=== PATIENT | male | born 1960 | race African-American/Black ===

== ENCOUNTER 2018-09-15 11:53 | Inpatient (IN) | payer BC ==
[2018-09-15 13:21] VITALS: BMI 31.4
--- NOTE | 2018-09-15 13:35 | HP ---
<Tameka Adamson - Last Filed: 09/15/18 13:35> CIWA Score - Admission Criteria OASAS Guidelines: Admission for Medically Managed Detox: Requires at least one of the followin. CIWA greater than 12 2. Seizures within the past 24 hours 3. Delirium tremens within the past 24 hours 4. Hallucinations within the past 24 hours 5. Acute intervention needed for co occurring medical disorder 6. Acute intervention needed for co occurring psychiatric disorder 7. Severe withdrawal that cannot be handled at a lower level of care (continued vomiting, continued diarrhea, abnormal vital signs) requiring intravenous medication and/or fluids 8. Admission ROS [facility] Chief Complaint: " alcohol detox" Allergies/Adverse Reactions: Allergies Allergy/AdvReac Type Severity Reaction Status Date / Time No Known Allergies Allergy Verified 09/15/18 13:10 History of Present Illness: 57 yo male with hx of alcohol dependence Utox positive for ROBIN , opiates, bzo, BAR, patient denies use of other sustances , request alcohol detox today Reports first time to detox Denies hx of seizures or blackotus PMHX: - Ebola screening Have you traveled outside of the country in the last 21 days: No Have you had contact with anyone from an Ebola affected area: No Have you been sick,other than usual withdrawal symptoms: No Do you have a fever: No Patient History - Patient Medical History Hx Asthma: No Hx Chronic Obstructive Pulmonary Disease (COPD): No Hx Cardiac Disorders: No Hx Hypertension: No Hx Seizures: No Hx Diabetes: No Hx Gastrointestinal Disorders: No Hx Genitourinary Disorders: No Hx Sexually Transmitted Disorders: No Hx Renal Disease (ESRD): No Hx Depression: No Hx Suicide Attempt: No Hx Schizophrenia: No - Patient Surgical History Past Surgical History: No Hx Neurologic Surgery: No Hx Cataract Extraction: No Hx Cardiac Surgery: No Hx Lung Surgery: No Hx Breast Surgery: No Hx Breast Biopsy: No Hx Abdominal Surgery: No Hx Appendectomy: No Hx Cholecystectomy: No Hx Genitourinary Surgery: No Hx Section: No Hx Orthopedic Surgery: No Anesthesia Reaction: No - PPD History Previous Implant?: Yes Documented Results: Negative w/o proof Implanted On Prior R Admission?: No - Smoking Cessation Smoking history: Current every day smoker Have you smoked in the past 12 months: Yes Aproximately how many cigarettes per day: 10 Hx Chewing Tobacco Use: No Initiated information on smoking cessation: Yes - Substances Abused Heroin Route: Inhalation Frequency: 1-3 times last 30 days Amount used: 1/4 bag Age of first use: 57 Date of Last Use: 09/13/18 Alcohol-vodka Route: Oral Frequency: Daily Amount used: 3-4 pts. Age of first use: 28 Date of Last Use: 09/14/18 Admission Physical Exam S - Vital Signs Vital Signs: Vital Signs - 24 hr 09/15/18 13:12 Temperature 98.5 F Pulse Rate 62 Respiratory 20 Rate Blood Pressure 133/75 [facility] Breath Alcohol Content Breath Alcohol Content: 0 Urine Drug Screen - Results Drug Screen Negative: No Urine Drug Screen Results: ROBIN-Cocaine, OPI-Opiates, BAR-Barbiturates, BZO- Benzodiazepines <Tushar Olguin - Last Filed: 09/16/18 08:33> CIWA Score Nausea/Vomitin Muscle Tremors: 2 Anxiety: 2 Agitation: 2 Paroxysmal Sweats: 1-Minimal Palms Moist Orientation: 0-Oriented Tacttile Disturbances: 1-Very Mild Itch/Numbness Auditory Disturbances: 1-Very Mild Visual Disturbances: 0-None Headache: 2-Mild CIWA-Ar Total Score: 13 - Admission Criteria OASAS Guidelines: Admission for Medically Managed Detox: Requires at least one of the followin. CIWA greater than 12 2. Seizures within the past 24 hours 3. Delirium tremens within the past 24 hours 4. Hallucinations within the past 24 hours 5. Acute intervention needed for co occurring medical disorder 6. Acute intervention needed for co occurring psychiatric disorder 7. Severe withdrawal that cannot be handled at a lower level of care (continued vomiting, continued diarrhea, abnormal vital signs) requiring intravenous medication and/or fluids 8. Patient presents the following: CIWA greater than 12 Admission Criteria Met: Admission criteria met Admission ROS [facility] - HPI Chief Complaint: i need help to stop drinking alcohol History of Present Illness: this 57 years old male with alcohol dependence seeking detox,withdrawal symptom, never been in detox before last seen in er in [facility] last night ,clear too come in for detox pain in the left hip also heroin and cocaine longest period 6 months plan for rehab after detox Exam Limitations: No Limitations - Ebola screening Have you traveled outside of the country in the last 21 days: No - Review of Systems Constitutional: Loss of Appetite, Malaise, Night Sweats, Changes in sleep, Weakness EENT: reports: Nose Congestion Respiratory: reports: No Symptoms reported Cardiac: reports: No Symptoms Reported GI: reports: Nausea, Poor Appetite, Abdominal cramping : reports: No Symptoms Reported Musculoskeletal: reports: Back Pain, Muscle Pain Integumentary: reports: Dryness Neuro: reports: Headache, Tremors Endocrine: reports: No Symptoms Reported Hematology: reports: No Symptoms Reported Psychiatric: reports: No Sypmtoms Reported, Judgement Intact, Mood/Affect Appropiate, Orientated x3, other Other Systems: Reviewed and Negative Patient History - Patient Medical History Hx Anemia: No Hx Cancer: No Hx Cardiac Disorders: No Hx Congestive Heart Failure: No Hx Hypertension: No Hx Hypercholesterolemia: No Hx Pacemaker: No HX Cerebrovascular Accident: No Hx Seizures: No Hx Dementia: No Hx Diabetes: No Hx Gastrointestinal Disorders: No Hx Liver Disease: No Hx Genitourinary Disorders: No Hx Sexually Transmitted Disorders: No Hx Renal Disease (ESRD): No Hx Thyroid Disease: No Hx Human Immunodeficiency Virus (HIV): No (last 2017) Hx Hepatitis C: No Hx Depression: No Hx Suicide Attempt: No Hx Bipolar Disorder: No Hx Schizophrenia: No - Patient Surgical History Past Surgical History: Yes Other Surgical History: no sucidal,no homicidal - PPD History Previous Implant?: Yes Documented Results: Negative w/o proof Implanted On Prior [facility] Admission?: No PPD to be Administered?: Yes - Smoking Cessation Smoking history: Current every day smoker Have you smoked in the past 12 months: Yes Hx Chewing Tobacco Use: No Initiated information on smoking cessation: Yes 'Breaking Loose' booklet given: 09/15/18 - Substance & Tx. History Hx Alcohol Use: Yes Hx Substance Use: Yes Substance Use Type: Alcohol, Cocaine, Heroin Hx Substance Use Treatment: No - Substances Abused cocaine Route: Inhalation Frequency: 1-3 times last 30 days Amount used: 20$ Age of first use: 21 Date of Last Use: 09/13/18 Family Disease History - Family Disease History Family History: Denies Admission Physical Exam [facility] - Vital Signs Vital Signs: Vital Signs - 24 hr 09/15/18 13:12 Temperature 98.5 F Pulse Rate 62 Respiratory 20 Rate Blood Pressure 133/75 - Physical General Appearance: Yes: Moderate Distress, Tremorous, Irritable, Sweating, Anxious HEENTM: Yes: Normal ENT Inspection, ALFREDO, Pharynx Normal Respiratory: Yes: Lungs Clear, Normal Breath Sounds, No Respiratory Distress Neck: Yes: Within Normal Limits, Supple, Trachea in good position Breast: Yes: Within Normal Limits Cardiology: Yes: Within Normal Limits, Regular Rhythm, Regular Rate, S1, S2 Abdominal: Yes: Within Normal Limits, Normal Bowel Sounds, Non Tender, Soft Genitourinary: Yes: Within Normal Limits Back: Yes: Muscle Spasm Musculoskeletal: Yes: full range of Motion, Back pain, Muscle Pain Extremities: Yes: Tremors Neurological: 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: 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
[2018-09-15] MEDS ORDERED: MAGNESIUM HYDROX 2400MG/30ML ORAL SUSPENSION 30 ML CUP PO PRN (16:12)
[2018-09-15] MEDS ORDERED: MAG HYDROX/AL HYDROX/SIMETH 30 ML UNIT-DOSE CUP PO PRN (16:12)
[2018-09-15] MEDS ORDERED: MENTHOL/PHENOL 1 EACH UD MM PRN (16:12)
[2018-09-15] MEDS ORDERED: chlordiazePOXIDE HCL 25 MG CAPSULE PO PRN (16:12)
[2018-09-15] MEDS ORDERED: NICOTINE POLACRILEX 2 MG GUM BC PRN (16:12)
[2018-09-15] MEDS ORDERED: P-EPHED 60MG/TRIPROLIDI 2.5MG TABLET PO PRN (16:12)
[2018-09-15] MEDS ORDERED: LOPERAMIDE HCL 2 MG CAPSULE PO PRN (16:12)
[2018-09-15] MEDS ORDERED: ACETAMINOPHEN 325 MG TABLET (FP) PO PRN (16:12)
[2018-09-15] MEDS ORDERED: hydrOXYzine PAMOATE 50 MG CAPSULE (FP) PO PRN (16:12)
[2018-09-15] MEDS ORDERED: IBUPROFEN 400 MG TABLET (FP) PO PRN (16:12)
[2018-09-15] MEDS ORDERED: MAGNESIUM CITRATE 300 ML BOTTLE PO PRN (16:12)
[2018-09-15] MEDS ORDERED: guaiFENesin/D-METHORPHAN HB 10 ML UNIT-DOSE CUPS PO PRN (16:12)
[2018-09-15] MEDS: amLODIPine BESYLATE 10 MG TABLET (FP) PO SCH (17:35)
[2018-09-15] MEDS: NICOTINE 21 MG/24 HOURS TOPICAL PATCH TD SCH (17:39)
[2018-09-15] MEDS ORDERED: MELATONIN 5 MG TABLETS PO PRN (22:00)
[2018-09-15] MEDS: chlordiazePOXIDE HCL 25 MG CAPSULE PO SCH (22:37)
[2018-09-15] MEDS: THIAMINE HCL 100 MG TABLET (FP) PO SCH (22:37)
[2018-09-16] MEDS: chlordiazePOXIDE HCL 25 MG CAPSULE PO SCH ×4 (05:46→22:11)
[2018-09-16] MEDS: amLODIPine BESYLATE 10 MG TABLET (FP) PO SCH (10:20)
[2018-09-16] MEDS: NICOTINE 21 MG/24 HOURS TOPICAL PATCH TD SCH (10:20)
[2018-09-16] MEDS: PRENATAL VITAMINS W/ FOLIC ACID TABLET (FP) PO SCH (10:20)
[2018-09-16 10:57] LABS: HEMATOCRIT 36.5 % (35.4-49); MCH 33.4 pg (25.7-33.7); MCHC 35.7 g/dl (32.0-35.9); MEAN CELL VOLUME 93.4 fl (80-96); MEAN PLT VOLUME 7.4 fl (7.5-11.1); PLATELET COUNT 306 K/MM3 (134-434); RBC 3.91 M/mm3 (4.00-5.60); RDW 15.2 % (11.9-15.9); WHITE BLOOD COUNT 7.5 K/mm3 (4.0-10.0)
[2018-09-16 11:18] LABS: SICKLE CELL SCREEN NEGATIVE (NEGATIVE)
[2018-09-16 11:19] LABS: ALBUMIN 3.2 g/dl (3.4-5.0); ALK PHOS 74 U/L (45-117); ANION GAP 9 MMOL/L (8-16); BILIRUBIN,TOTAL 0.6 mg/dL (0.2-1); BLOOD UREA NITROGEN 11 mg/dL (7-18); CALCIUM 8.5 mg/dL (8.5-10.1); CHLORIDE 108 mmol/L (98-107); CO2 26 mmol/L (21-32); GLUCOSE,RANDOM 89 mg/dL (74-106); POTASSIUM 3.9 mmol/L (3.5-5.1); SGOT/AST 32 U/L (15-37); SGPT/ALT 29 U/L (13-61); SODIUM 143 mmol/L (136-145)
--- NOTE | 2018-09-16 14:01 | PN ---
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 patient does exhibiting tremor sweating restlessness Objective: 09/16/18 14:01 Vital Signs Temperature 97.5 F L 09/16/18 09:06 Pulse Rate 71 09/16/18 09:06 Respiratory Rate 18 09/16/18 09:06 Blood Pressure 128/71 09/16/18 09:06 O2 Sat by Pulse Oximetry (%) Laboratory Last Values WBC 7.5 K/mm3 (4.0-10.0) 09/16/18 08:00 RBC 3.91 M/mm3 (4.00-5.60) L 09/16/18 08:00 Hgb 13.0 GM/dL (11.7-16.9) 09/16/18 08:00 Hct 36.5 % (35.4-49) 09/16/18 08:00 MCV 93.4 fl (80-96) 09/16/18 08:00 MCH 33.4 pg (25.7-33.7) 09/16/18 08:00 MCHC 35.7 g/dl (32.0-35.9) 09/16/18 08:00 RDW 15.2 % (11.9-15.9) 09/16/18 08:00 Plt Count 306 K/MM3 (134-434) 09/16/18 08:00 MPV 7.4 fl (7.5-11.1) L 09/16/18 08:00 Sickle Cell Screen Negative (NEGATIVE) 09/16/18 08:00 Sodium 143 mmol/L (136-145) 09/16/18 08:00 Potassium 3.9 mmol/L (3.5-5.1) 09/16/18 08:00 Chloride 108 mmol/L (98-107) H 09/16/18 08:00 Carbon Dioxide 26 mmol/L (21-32) 09/16/18 08:00 Anion Gap 9 MMOL/L (8-16) 09/16/18 08:00 BUN 11 mg/dL (7-18) 09/16/18 08:00 Creatinine 1.0 mg/dL (0.55-1.3) 09/16/18 08:00 Creat Clearance w eGFR > 60 (>60) 09/16/18 08:00 Random Glucose 89 mg/dL (74-106) 09/16/18 08:00 Calcium 8.5 mg/dL (8.5-10.1) 09/16/18 08:00 Total Bilirubin 0.6 mg/dL (0.2-1) 09/16/18 08:00 AST 32 U/L (15-37) 09/16/18 08:00 ALT 29 U/L (13-61) 09/16/18 08:00 Alkaline Phosphatase 74 U/L (45-117) 09/16/18 08:00 Total Protein 6.0 g/dl (6.4-8.2) L 09/16/18 08:00 Albumin 3.2 g/dl (3.4-5.0) L 09/16/18 08:00 RPR Titer Nonreactive (NONREACTIVE) 09/16/18 08:00 HIV 1&2 Antibody Screen Negative 09/16/18 08:00 HIV P24 Antigen Negative 09/16/18 08:00 lab noted Assessment: 09/16/18 14:01 withdrawal sx Plan: continue detox
[2018-09-16] MEDS: THIAMINE HCL 100 MG TABLET (FP) PO SCH (22:11)
[2018-09-17] MEDS: chlordiazePOXIDE HCL 25 MG CAPSULE PO SCH ×3 (06:05→18:25)
[2018-09-17] MEDS: NICOTINE 21 MG/24 HOURS TOPICAL PATCH TD SCH (10:55)
[2018-09-17] MEDS: PRENATAL VITAMINS W/ FOLIC ACID TABLET (FP) PO SCH (12:02)
[2018-09-17] MEDS: amLODIPine BESYLATE 10 MG TABLET (FP) PO SCH (12:02)
--- NOTE | 2018-09-17 14:08 | PN ---
[facility] CIWA - CIWA Score Nausea/Vomitin-Mild Nausea/No Vomiting Muscle Tremors: 3 Anxiety: 1-Mildly Anxious Agitation: 2 Paroxysmal Sweats: 1-Minimal Palms Moist Orientation: 1-Uncertain about Date Tacttile Disturbances: 0-None Auditory Disturbances: 0-None Visual Disturbances: 0-None Headache: 1-Very Mild CIWA-Ar Total Score: 10 S Progress Note (SOAP) Subjective: tremor irritable hesitate to carry conversation with the information writer sweating agitative in time Objective: 09/17/18 14:09 Vital Signs Temperature 97.1 F L 09/17/18 13:37 Pulse Rate 66 09/17/18 13:37 Respiratory Rate 18 09/17/18 13:37 Blood Pressure 119/64 09/17/18 13:37 O2 Sat by Pulse Oximetry (%) Laboratory Last Values WBC 7.5 K/mm3 (4.0-10.0) 09/16/18 08:00 RBC 3.91 M/mm3 (4.00-5.60) L 09/16/18 08:00 Hgb 13.0 GM/dL (11.7-16.9) 09/16/18 08:00 Hct 36.5 % (35.4-49) 09/16/18 08:00 MCV 93.4 fl (80-96) 09/16/18 08:00 MCH 33.4 pg (25.7-33.7) 09/16/18 08:00 MCHC 35.7 g/dl (32.0-35.9) 09/16/18 08:00 RDW 15.2 % (11.9-15.9) 09/16/18 08:00 Plt Count 306 K/MM3 (134-434) 09/16/18 08:00 MPV 7.4 fl (7.5-11.1) L 09/16/18 08:00 Sickle Cell Screen Negative (NEGATIVE) 09/16/18 08:00 Sodium 143 mmol/L (136-145) 09/16/18 08:00 Potassium 3.9 mmol/L (3.5-5.1) 09/16/18 08:00 Chloride 108 mmol/L (98-107) H 09/16/18 08:00 Carbon Dioxide 26 mmol/L (21-32) 09/16/18 08:00 Anion Gap 9 MMOL/L (8-16) 09/16/18 08:00 BUN 11 mg/dL (7-18) 09/16/18 08:00 Creatinine 1.0 mg/dL (0.55-1.3) 09/16/18 08:00 Creat Clearance w eGFR > 60 (>60) 09/16/18 08:00 Random Glucose 89 mg/dL (74-106) 09/16/18 08:00 Calcium 8.5 mg/dL (8.5-10.1) 09/16/18 08:00 Total Bilirubin 0.6 mg/dL (0.2-1) 09/16/18 08:00 AST 32 U/L (15-37) 09/16/18 08:00 ALT 29 U/L (13-61) 09/16/18 08:00 Alkaline Phosphatase 74 U/L (45-117) 09/16/18 08:00 Total Protein 6.0 g/dl (6.4-8.2) L 09/16/18 08:00 Albumin 3.2 g/dl (3.4-5.0) L 09/16/18 08:00 RPR Titer Nonreactive (NONREACTIVE) 09/16/18 08:00 HIV 1&2 Antibody Screen Negative 09/16/18 08:00 HIV P24 Antigen Negative 09/16/18 08:00 lab noted Assessment: 09/17/18 14:09 withdrawal sx Plan: continue detox
[2018-09-17] MEDS: THIAMINE HCL 100 MG TABLET (FP) PO SCH (22:13)
[2018-09-17] MEDS: chlordiazePOXIDE 5 MG CAPSULE PO SCH (22:13)
[2018-09-18] MEDS: chlordiazePOXIDE 5 MG CAPSULE PO SCH ×3 (06:06→17:23)
[2018-09-18] MEDS: amLODIPine BESYLATE 10 MG TABLET (FP) PO SCH (10:25)
[2018-09-18] MEDS: PRENATAL VITAMINS W/ FOLIC ACID TABLET (FP) PO SCH (10:25)
[2018-09-18] MEDS: NICOTINE 21 MG/24 HOURS TOPICAL PATCH TD SCH (12:09)
--- NOTE | 2018-09-18 18:22 | PN ---
[facility] Progress Note (SOAP) Subjective: Headache. Objective: PATIENT A & O X 2 (UNCERTAIN ABOUT CURRENT DAY / DATE). PATIENT OBSERVED AMBULATING ON UNIT. IN NO ACUTE DISTRESS. 09/18/18 18:21 Vital Signs Temperature 97.9 F 09/18/18 17:45 Pulse Rate 70 09/18/18 17:45 Respiratory Rate 18 09/18/18 17:45 Blood Pressure 116/68 09/18/18 17:45 O2 Sat by Pulse Oximetry (%) Laboratory Tests 09/16/18 09/16/18 09/16/18 08:00 08:00 08:00 WBC 7.5 RBC 3.91 L Hgb 13.0 Hct 36.5 MCV 93.4 MCH 33.4 MCHC 35.7 RDW 15.2 Plt Count 306 MPV 7.4 L Sickle Cell Screen Negative Sodium 143 Potassium 3.9 Chloride 108 H Carbon Dioxide 26 Anion Gap 9 BUN 11 Creatinine 1.0 Creat Clearance w eGFR > 60 Random Glucose 89 Calcium 8.5 Total Bilirubin 0.6 AST 32 ALT 29 Alkaline Phosphatase 74 Total Protein 6.0 L Albumin 3.2 L RPR Titer HIV 1&2 Antibody Screen Negative HIV P24 Antigen Negative 09/16/18 08:00 WBC RBC Hgb Hct MCV MCH MCHC RDW Plt Count MPV Sickle Cell Screen Sodium Potassium Chloride Carbon Dioxide Anion Gap BUN Creatinine Creat Clearance w eGFR Random Glucose Calcium Total Bilirubin AST ALT Alkaline Phosphatase Total Protein Albumin RPR Titer Nonreactive HIV 1&2 Antibody Screen HIV P24 Antigen LABS NOTED. Assessment: 09/18/18 18:22 WITHDRAWAL SYMPTOMS. Plan: CONTINUE DETOX. PATIENT SCHEDULED FOR D/C TOMORROW.
[2018-09-18] MEDS: THIAMINE HCL 100 MG TABLET (FP) PO SCH (22:24)
[2018-09-18] MEDS: chlordiazePOXIDE HCL 10 MG CAPSULE PO SCH (22:24)
[2018-09-19] MEDS: chlordiazePOXIDE HCL 10 MG CAPSULE PO SCH ×2 (06:28→10:36)
[2018-09-19 09:09] VITALS: BP 132/77; PULSE 84; TEMP 96.5
[2018-09-19] MEDS: PRENATAL VITAMINS W/ FOLIC ACID TABLET (FP) PO SCH (10:09)
[2018-09-19] MEDS: amLODIPine BESYLATE 10 MG TABLET (FP) PO SCH (10:09)
[2018-09-19] MEDS: NICOTINE 21 MG/24 HOURS TOPICAL PATCH TD SCH (10:36)
--- NOTE | 2018-09-19 16:18 | PN ---
S Progress Note (SOAP) Subjective: denies any complaints Objective: 09/19/18 16:18 A & ox 3 Not in acute distress Vital Signs Temperature 96.5 F L 09/19/18 09:08 Pulse Rate 84 09/19/18 09:08 Respiratory Rate 18 09/19/18 09:08 Blood Pressure 132/77 09/19/18 09:08 O2 Sat by Pulse Oximetry (%) Assessment: 09/19/18 16:18 detox completed Plan: for discharge
--- NOTE | 2018-09-19 16:21 | DS ---
[facility] Detox Discharge Summary Admission Date: 09/15/18 Discharge Date: 09/19/18 - History Additional Comments: Pt for discharge States he is going home, intends to do aftercare by attending AA meetings Prescription Norvasc sent to [place] yesterday by previous provider and pt will pick it up on his way out. Vital Signs Temperature 96.5 F L 09/19/18 09:08 Pulse Rate 84 09/19/18 09:08 Respiratory Rate 18 09/19/18 09:08 Blood Pressure 132/77 09/19/18 09:08 O2 Sat by Pulse Oximetry (%) - Physical Exam Results Vital Signs: Vital Signs Temperature 96.5 F L 09/19/18 09:08 Pulse Rate 84 09/19/18 09:08 Respiratory Rate 18 09/19/18 09:08 Blood Pressure 132/77 09/19/18 09:08 O2 Sat by Pulse Oximetry (%) Pertinent Admission Physical Exam Findings: withdrawal sx - Medication Discharge Medications: Ambulatory Orders Amlodipine Besylate [Norvasc -] 10 mg PO DAILY 30 Days #30 tablet 09/18/18 - AMA Did Patient Leave Against Medical Advice: No
== END 2018-09-19 10:27 | disposition home or self-care (01) | DRG 773 ==
LOC: YASAS 11:53 → Y3N 16:10
PROVIDERS: ADMIT Surgery; ATTEND Surgery
PROC: HZ2ZZZZ Detoxification Services for Substance Abuse Treatment (ICD-10-PCS; principal; 2018-09-15)
DX: F10.230 Alcohol dependence with withdrawal, uncomplicated (principal); F14.20 Cocaine dependence, uncomplicated; F11.10 Opioid abuse, uncomplicated; I10 Essential (primary) hypertension; M25.552 Pain in left hip
CPT/HCPCS: 36415; 80053; 85027; 85660; 86593; 87389

== ENCOUNTER 2019-01-22 10:13 | Inpatient (IN) | payer BC ==
[2019-01-22 11:23] VITALS: BMI 30.3
--- NOTE | 2019-01-22 14:08 | HP ---
CIWA Score Nausea/Vomitin-No Nausea/No Vomiting Muscle Tremors: None Anxiety: 3 Agitation: 1-Slight > Activity Paroxysmal Sweats: 2 Orientation: 0-Oriented Tacttile Disturbances: 2-Mild Itch/Numbness/Burn Auditory Disturbances: 0-None Visual Disturbances: 0-None Headache: 2-Mild CIWA-Ar Total Score: 10 - Admission Criteria OASAS Guidelines: Admission for Medically Managed Detox: Requires at least one of the followin. CIWA greater than 12 2. Seizures within the past 24 hours 3. Delirium tremens within the past 24 hours 4. Hallucinations within the past 24 hours 5. Acute intervention needed for co occurring medical disorder 6. Acute intervention needed for co occurring psychiatric disorder 7. Severe withdrawal that cannot be handled at a lower level of care (continued vomiting, continued diarrhea, abnormal vital signs) requiring intravenous medication and/or fluids 8. Admission ROS [facility] - HPI Allergies/Adverse Reactions: Allergies Allergy/AdvReac Type Severity Reaction Status Date / Time pork derived (porcine) Allergy Verified 01/22/19 11:14 pork Allergy Vomiting Uncoded 01/22/19 11:14 History of Present Illness: pt here requesting detox from etoh use , reports 2 pints 3 days/week , latest use today , current court 0.000 , reports on the days he does not drink " I can't eat " , denies seizures, tremors, + blackouts . pmhx : htn pshx : denies meds : amlodipine , hctz , not compliant w/ meds per own report states " I get medicine from the hospital, if I am at [facility] I get it from there , if I am in [place] I get it there " Exam Limitations: No Limitations - Ebola screening Have you traveled outside of the country in the last 21 days: No Have you had contact with anyone from an Ebola affected area: No - Review of Systems Constitutional: No Symptoms Reported EENT: reports: No Symptoms Reported Respiratory: reports: No Symptoms reported Cardiac: reports: No Symptoms Reported GI: reports: No Symptoms Reported : reports: No Symptoms Reported Musculoskeletal: reports: No Symptoms Reported Integumentary: reports: Other (swelling in legs after standing /walking for a long time , denies pain) Neuro: reports: See HPI Endocrine: reports: No Symptoms Reported Psychiatric: reports: Orientated x3, Agitated, Anxious Patient History - Patient Medical History Hx Anemia: No Hx Asthma: No Hx Chronic Obstructive Pulmonary Disease (COPD): No Hx Cancer: No Hx Cardiac Disorders: No Hx Congestive Heart Failure: No Hx Hypertension: No Hx Hypercholesterolemia: No Hx Pacemaker: No HX Cerebrovascular Accident: No Hx Seizures: No Hx Dementia: No Hx Diabetes: No Hx Gastrointestinal Disorders: No Hx Liver Disease: No Hx Genitourinary Disorders: No Hx Sexually Transmitted Disorders: No Hx Renal Disease (ESRD): No Hx Thyroid Disease: No Hx Human Immunodeficiency Virus (HIV): No (last 2017) Hx Hepatitis C: No Hx Depression: No Hx Suicide Attempt: No Hx Bipolar Disorder: No Hx Schizophrenia: No - Patient Surgical History Past Surgical History: Yes Hx Neurologic Surgery: No Hx Cataract Extraction: No Hx Cardiac Surgery: No Hx Lung Surgery: No Hx Breast Surgery: No Hx Breast Biopsy: No Hx Abdominal Surgery: No Hx Appendectomy: No Hx Cholecystectomy: No Hx Genitourinary Surgery: No Hx Section: No Hx Orthopedic Surgery: No Other Surgical History: no sucidal,no homicidal Anesthesia Reaction: No - PPD History Date: 09/17/18 - Smoking Cessation Smoking history: Current every day smoker Have you smoked in the past 12 months: Yes Aproximately how many cigarettes per day: 10 Hx Chewing Tobacco Use: No Initiated information on smoking cessation: No - Substances abused Heroin Substance route: Inhalation Frequency: Daily Amount used: 3 bags a day Age of first use: 50 Date of last use: 01/20/19 Alcohol Substance route: Oral Frequency: Daily Amount used: 1-2 pints vodka Age of first use: 23 Date of last use: 01/22/19 Admission Physical Exam S - Vital Signs Vital Signs: Vital Signs - 24 hr 01/22/19 01/22/19 11:17 14:03 Temperature 97.5 F L 97.5 F L Pulse Rate 63 63 Respiratory 18 18 Rate Blood Pressure 134/84 134/84 - Physical General Appearance: Yes: Irritable, Anxious HEENTM: Yes: EOMI, Normocephalic, Normal Voice Respiratory: Yes: Lungs Clear, No Respiratory Distress, No Accessory Muscle Use Neck: Yes: No masses,lesions,Nodules, Trachea in good position Cardiology: Yes: Regular Rhythm, Regular Rate, S1, S2 Abdominal: Yes: Non Tender, Soft Musculoskeletal: Yes: Gait Steady Extremities: Yes: Normal Range of Motion, Non-Tender, Pedal Edema (bilateral , painless, non- pitting) Neurological: Yes: Alert, Motor Strength 5/5 Integumentary: Yes: Warm - Diagnostic (1) Alcohol abuse Current Visit: Yes Status: Acute Breathalyzer - Breathalyzer Breathalyzer: 0 Urine Drug Screen - Test Device Lot number: [id number] Expiration date: 09/24/20 - Control Is test valid?: Yes - Results Drug screen NEGATIVE: No Urine drug screen results: THC-Marijuana Inpatient Rehab Admission - Rehab Decision to Admit Inpatient rehab admission?: No
[2019-01-22] MEDS ORDERED: IBUPROFEN 400 MG TABLET (FP) PO PRN (14:19)
[2019-01-22] MEDS ORDERED: BISMUTH SUBSALICYLATE 262 MG/15 ML BTL PO PRN (14:19)
[2019-01-22] MEDS ORDERED: MAGNESIUM HYDROX 2400MG/30ML ORAL SUSPENSION 30 ML CUP PO PRN (14:19)
[2019-01-22] MEDS ORDERED: MAGNESIUM CITRATE 300 ML BOTTLE PO PRN (14:19)
[2019-01-22] MEDS ORDERED: MAG HYDROX/AL HYDROX/SIMETH 30 ML UNIT-DOSE CUP PO PRN (14:19)
[2019-01-22] MEDS ORDERED: hydrOXYzine PAMOATE 25 MG CAPSULE (FP) PO PRN (14:19)
[2019-01-22] MEDS ORDERED: ACETAMINOPHEN 325 MG TABLET (FP) PO PRN ×2 (14:19)
[2019-01-22] MEDS ORDERED: MENTHOL/PHENOL 1 EACH UD MM PRN (14:19)
[2019-01-22] MEDS ORDERED: diazePAM 5 MG TABLET PO PRN (14:20)
[2019-01-22] MEDS: cloNIDine HCL 0.1 MG TABLET PO PRN ×2 (15:22→22:04)
[2019-01-22] MEDS: diazePAM 5 MG TABLET PO SCH ×2 (15:22→22:04)
[2019-01-22] MEDS: MELATONIN 5 MG TABLETS PO PRN (22:04)
[2019-01-22] MEDS: THIAMINE HCL 100 MG TABLET (FP) PO SCH (22:04)
[2019-01-23] MEDS: diazePAM 5 MG TABLET PO SCH ×3 (05:13→22:14)
[2019-01-23 10:32] LABS: ALBUMIN 3.3 g/dl (3.4-5.0); BILIRUBIN,TOTAL 0.8 mg/dL (0.2-1); BLOOD UREA NITROGEN 9.8 mg/dL (7-18); CALCIUM 8.6 mg/dL (8.5-10.1); CREATININE 0.9 mg/dL (0.55-1.3); TOT PROT 6.2 g/dl (6.4-8.2)
[2019-01-23 10:40] LABS: HEMATOCRIT 38.1 % (35.4-49); MCH 31.7 pg (25.7-33.7); MEAN CELL VOLUME 93.1 fl (80-96); MEAN PLT VOLUME 7.7 fl (7.5-11.1); RBC 4.09 M/mm3 (4.00-5.60); RDW 14.7 % (11.9-15.9)
[2019-01-23] MEDS: PRENATAL VITAMINS W/ FOLIC ACID TABLET (FP) PO SCH (10:49)
[2019-01-23 11:27] LABS: PLATELET COUNT 295 K/MM3 (134-434)
--- NOTE | 2019-01-23 15:47 | PN ---
[facility] CIWA - CIWA Score Nausea/Vomitin-No Nausea/No Vomiting Muscle Tremors: None Anxiety: 4-Mod. Anxious/Guarded Agitation: 2 Paroxysmal Sweats: 3 Orientation: 0-Oriented Tacttile Disturbances: 2-Mild Itch/Numbness/Burn Auditory Disturbances: 2-Mild Harshness/Frighten Visual Disturbances: 0-None Headache: 0-None Present CIWA-Ar Total Score: 13 S Progress Note (SOAP) Subjective: Diarrhea, Sweating, Anxious, Body Aches. Objective: PATIENT A & O X 3, OBSERVED AMBULATING ON UNIT UNASSISTED. IN NO ACUTE DISTRESS. 01/23/19 15:46 Vital Signs Temperature 98.3 F 01/23/19 13:45 Pulse Rate 61 01/23/19 13:45 Respiratory Rate 18 01/23/19 13:45 Blood Pressure 157/91 01/23/19 13:45 O2 Sat by Pulse Oximetry (%) Laboratory Tests 01/23/19 01/23/19 01/23/19 07:50 07:50 07:50 WBC 7.0 RBC 4.09 Hgb 13.0 Hct 38.1 MCV 93.1 MCH 31.7 MCHC 34.0 RDW 14.7 Plt Count 295 MPV 7.7 Sodium 141 Potassium 4.0 Chloride 108 H Carbon Dioxide 27 Anion Gap 6 L BUN 9.8 Creatinine 0.9 Est GFR (CKD-EPI)AfAm 109.50 Est GFR (CKD-EPI)NonAf 94.48 Random Glucose 76 Calcium 8.6 Total Bilirubin 0.8 AST 17 ALT 27 Alkaline Phosphatase 82 Total Protein 6.2 L Albumin 3.3 L RPR Titer Nonreactive LABS NOTED. Assessment: 01/23/19 15:46 WITHDRAWAL SYMPTOMS. Plan: CONTINUE DETOX. DUE TO SEVERITY OF CURRENT WITHDRAWAL / DETOX SYMPTOMS, PATIENT PERMITTED TO REMAIN ON DETOX UNIT FOR FURHTE RDETOX TREATMENT UNTIL 01/25/2019.
[2019-01-23] MEDS: THIAMINE HCL 100 MG TABLET (FP) PO SCH (22:14)
[2019-01-23] MEDS: MELATONIN 5 MG TABLETS PO PRN (22:14)
[2019-01-23] MEDS: cloNIDine HCL 0.1 MG TABLET PO PRN (22:15)
[2019-01-24] MEDS ORDERED: diazePAM 5 MG TABLET PO ONE (06:00)
[2019-01-24] MEDS: PRENATAL VITAMINS W/ FOLIC ACID TABLET (FP) PO SCH (10:17)
--- NOTE | 2019-01-24 12:53 | PN ---
S CIWA - CIWA Score Nausea/Vomitin-No Nausea/No Vomiting Muscle Tremors: 3 Anxiety: 4-Mod. Anxious/Guarded Agitation: 3 Paroxysmal Sweats: 3 Orientation: 0-Oriented Tacttile Disturbances: 0-None Auditory Disturbances: 0-None Visual Disturbances: 0-None Headache: 0-None Present CIWA-Ar Total Score: 13 BHS Progress Note (SOAP) Subjective: Slight anxiety, profuse sweating, fatigue. Objective: 01/24/19 12:51 Vital Signs - 24 hr 01/23/19 01/23/19 01/23/19 13:45 18:15 23:05 Temperature 98.3 F 96.9 F L 98.3 F Pulse Rate 61 67 60 Respiratory 18 16 17 Rate Blood Pressure 157/91 153/88 146/80 01/24/19 01/24/19 01/24/19 00:30 03:30 06:22 Temperature 98.1 F Pulse Rate 62 Respiratory 18 18 18 Rate Blood Pressure 136/80 01/24/19 09:28 Temperature 97.7 F Pulse Rate 61 Respiratory 18 Rate Blood Pressure 166/101 H Laboratory Tests 01/23/19 01/23/19 01/23/19 07:50 07:50 07:50 WBC 7.0 RBC 4.09 Hgb 13.0 Hct 38.1 MCV 93.1 MCH 31.7 MCHC 34.0 RDW 14.7 Plt Count 295 MPV 7.7 Sodium 141 Potassium 4.0 Chloride 108 H Carbon Dioxide 27 Anion Gap 6 L BUN 9.8 Creatinine 0.9 Est GFR (CKD-EPI)AfAm 109.50 Est GFR (CKD-EPI)NonAf 94.48 Random Glucose 76 Calcium 8.6 Total Bilirubin 0.8 AST 17 ALT 27 Alkaline Phosphatase 82 Total Protein 6.2 L Albumin 3.3 L RPR Titer Nonreactive Assessment: 01/24/19 12:51 withdrawal sx Plan: continue detox increase po fluids
[2019-01-24] MEDS: diazePAM 5 MG TABLET PO SCH ×2 (13:06→22:40)
[2019-01-24] MEDS: cloNIDine HCL 0.1 MG TABLET PO PRN ×2 (13:10→18:50)
[2019-01-24] MEDS: MELATONIN 5 MG TABLETS PO PRN (22:41)
[2019-01-24] MEDS: THIAMINE HCL 100 MG TABLET (FP) PO SCH (22:41)
[2019-01-25] MEDS: cloNIDine HCL 0.1 MG TABLET PO PRN (05:51)
[2019-01-25] MEDS ORDERED: diazePAM 5 MG TABLET PO ONE (06:00)
[2019-01-25 06:26] VITALS: BP 162/97; PULSE 75; TEMP 98.9
--- NOTE | 2019-01-25 17:50 | DS ---
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 PRE- DISCHARGE MEDICAL ASSESSMENT, INCLUDING INQUIRY ABOUT DISCHARGE MEDICATIONS, UNABLE TO BE DONE. PER [employer] MECHANIC Linda LARSEN, PATIENT RETURNING HOME AND REFERRED TO [facility]. OUTPATIENT PROGRAM ([place], [place]) FOR AFTERCARE. Pertinent Past History: HTN. - Physical Exam Results Vital Signs: Vital Signs Temperature 98.9 F 01/25/19 06:25 Pulse Rate 75 01/25/19 06:25 Respiratory Rate 18 01/25/19 06:25 Blood Pressure 162/97 01/25/19 06:25 O2 Sat by Pulse Oximetry (%) Pertinent Admission Physical Exam Findings: WITHDRAWAL SYMPTOMS. Laboratory Tests 01/23/19 01/23/19 01/23/19 07:50 07:50 07:50 WBC 7.0 RBC 4.09 Hgb 13.0 Hct 38.1 MCV 93.1 MCH 31.7 MCHC 34.0 RDW 14.7 Plt Count 295 MPV 7.7 Sodium 141 Potassium 4.0 Chloride 108 H Carbon Dioxide 27 Anion Gap 6 L BUN 9.8 Creatinine 0.9 Est GFR (CKD-EPI)AfAm 109.50 Est GFR (CKD-EPI)NonAf 94.48 Random Glucose 76 Calcium 8.6 Total Bilirubin 0.8 AST 17 ALT 27 Alkaline Phosphatase 82 Total Protein 6.2 L Albumin 3.3 L RPR Titer Nonreactive LABS NOTED. - Treatment Hospital Course: Detox Protocol Followed, Detoxed Safely, Responded well, Discharged Condition Good Patient has Accepted a Rehab Referral to: PT. REFERRED TO [facility] ([place], [place]). - Medication Discharge Medications: Ambulatory Orders Amlodipine Besylate [Norvasc -] 10 mg PO DAILY 30 Days #30 tablet 09/18/18 Furosemide 01/22/19 - Diagnosis (1) Alcohol abuse Status: Acute - AMA Did Patient Leave Against Medical Advice: No
== END 2019-01-25 08:25 | disposition home or self-care (01) | DRG 775 ==
LOC: YASAS 10:13 → Y3N 14:34
PROVIDERS: ADMIT Surgery; ATTEND Surgery
PROC: HZ2ZZZZ Detoxification Services for Substance Abuse Treatment (ICD-10-PCS; principal; 2019-01-22)
DX: F10.230 Alcohol dependence with withdrawal, uncomplicated (principal); Z59.0 Homelessness
CPT/HCPCS: 36415; 80053; 85027; 86593; J0735

== ENCOUNTER 2021-11-16 10:58 | Inpatient (IN) | payer OTHER ==
[2021-11-16] MEDS ORDERED: ONDANSETRON *ODT* 4 MG TABLET SL PRN (11:10)
[2021-11-16] MEDS ORDERED: NICOTINE 10 MG CARTRIDGE (INHALER) IH PRN (11:10)
[2021-11-16] MEDS ORDERED: MAGNESIUM CITRATE 300 ML BOTTLE PO PRN (11:10)
[2021-11-16] MEDS ORDERED: LOPERAMIDE HCL 2 MG CAPSULE PO PRN (11:10)
[2021-11-16] MEDS ORDERED: BISMUTH SUBSALICYLATE 262 MG/15 ML BTL PO PRN (11:10)
[2021-11-16] MEDS ORDERED: MAGNESIUM HYDROX 2400MG/30ML ORAL SUSPENSION 30 ML CUP PO PRN (11:10)
[2021-11-16] MEDS ORDERED: IBUPROFEN 400 MG TABLET (FP) PO PRN (11:10)
[2021-11-16] MEDS ORDERED: ACETAMINOPHEN 325 MG TABLET (FP) PO PRN ×2 (11:10)
[2021-11-16] MEDS ORDERED: BENZOCAINE/MENTHOL (CHLORASEPTIC ) LOZENGE MM PRN (11:10)
[2021-11-16] MEDS ORDERED: chlordiazePOXIDE HCL 25 MG CAPSULE PO PRN (11:10)
[2021-11-16] MEDS ORDERED: METHOCARBAMOL 500 MG TABLET PO PRN (11:10)
[2021-11-16] MEDS ORDERED: MAG HYDROX/AL HYDROX/SIMETH 30 ML UNIT-DOSE CUP PO PRN (11:10)
[2021-11-16] MEDS ORDERED: DICYCLOMINE HCL 10 MG CAPSULE PO PRN (11:10)
[2021-11-16 11:20] VITALS: BMI 26.9
[2021-11-16 15:48] LABS: HEMATOCRIT 44.5 % (35.4-49); HEMOGLOBIN 15.3 GM/dL (11.7-16.9); MCH 33.5 pg (25.7-33.7); MCHC 34.3 g/dl (32.0-35.9); MEAN CELL VOLUME 97.4 fl (80-96); MEAN PLT VOLUME 7.5 fl (7.5-11.1); PLATELET COUNT 315 10^3/uL (134-434); RBC 4.56 M/mm3 (4.00-5.60); RDW 15.6 % (11.9-15.9); WHITE BLOOD COUNT 7.7 K/mm3 (4.0-10.0)
[2021-11-16 15:50] LABS: CALCIUM 9.2 mg/dL (8.5-10.1)
[2021-11-16 15:51] LABS: ALBUMIN 3.5 g/dl (3.4-5.0); BLOOD UREA NITROGEN 11.8 mg/dL (7-18)
[2021-11-16 15:54] LABS: CREATININE 1.1 mg/dL (0.55-1.3)
[2021-11-16 15:55] LABS: BILIRUBIN,TOTAL 0.9 mg/dL (0.2-1); TOT PROT 6.7 g/dl (6.4-8.2)
[2021-11-16] MEDS: amLODIPine BESYLATE 10 MG TABLET (FP) PO SCH (17:52)
[2021-11-16] MEDS: NICOTINE 14 MG/24 HOURS TOPICAL PATCH TD SCH (17:53)
[2021-11-16] MEDS: hydrOXYzine PAMOATE 25 MG CAPSULE (FP) PO SCH ×3 (17:53→22:31)
[2021-11-16] MEDS: PRENATAL VITAMINS W/ FOLIC ACID TABLET (FP) PO SCH (17:53)
[2021-11-16] MEDS: chlordiazePOXIDE HCL 25 MG CAPSULE PO SCH ×2 (17:54→22:55)
[2021-11-16] MEDS: THIAMINE HCL 100 MG TABLET (FP) PO SCH (22:31)
[2021-11-16] MEDS: MELATONIN 5 MG TABLETS PO SCH (22:31)
[2021-11-17] MEDS: chlordiazePOXIDE HCL 25 MG CAPSULE PO SCH ×4 (06:45→22:30)
[2021-11-17] MEDS: hydrOXYzine PAMOATE 25 MG CAPSULE (FP) PO SCH ×5 (06:45→22:29)
[2021-11-17] MEDS: PRENATAL VITAMINS W/ FOLIC ACID TABLET (FP) PO SCH (10:47)
[2021-11-17] MEDS: amLODIPine BESYLATE 10 MG TABLET (FP) PO SCH (10:48)
[2021-11-17] MEDS: NICOTINE 14 MG/24 HOURS TOPICAL PATCH TD SCH (10:48)
[2021-11-17] MEDS: MELATONIN 5 MG TABLETS PO SCH (22:30)
[2021-11-17] MEDS: THIAMINE HCL 100 MG TABLET (FP) PO SCH (22:30)
[2021-11-18] MEDS: chlordiazePOXIDE HCL 25 MG CAPSULE PO SCH ×4 (08:30→22:50)
[2021-11-18] MEDS: hydrOXYzine PAMOATE 25 MG CAPSULE (FP) PO SCH ×2 (08:31→10:27)
[2021-11-18] MEDS: PRENATAL VITAMINS W/ FOLIC ACID TABLET (FP) PO SCH (10:27)
[2021-11-18] MEDS: amLODIPine BESYLATE 10 MG TABLET (FP) PO SCH (10:27)
[2021-11-18] MEDS: NICOTINE 14 MG/24 HOURS TOPICAL PATCH TD SCH (10:28)
[2021-11-18] MEDS ORDERED: hydrOXYzine PAMOATE 25 MG CAPSULE (FP) PO PRN (12:34)
[2021-11-18 14:06] LABS: SARS-CoV-2 NAA Not Detected (Not Detected)
[2021-11-18] MEDS: THIAMINE HCL 100 MG TABLET (FP) PO SCH (22:49)
[2021-11-18] MEDS: MELATONIN 5 MG TABLETS PO SCH (22:49)
[2021-11-19] MEDS ORDERED: chlordiazePOXIDE HCL 10 MG CAPSULE PO PRN
[2021-11-19] MEDS: chlordiazePOXIDE HCL 10 MG CAPSULE PO SCH ×4 (05:40→23:02)
[2021-11-19] MEDS: amLODIPine BESYLATE 10 MG TABLET (FP) PO SCH (10:03)
[2021-11-19] MEDS: NICOTINE 14 MG/24 HOURS TOPICAL PATCH TD SCH (10:04)
[2021-11-19] MEDS: PRENATAL VITAMINS W/ FOLIC ACID TABLET (FP) PO SCH (10:04)
[2021-11-19] MEDS: THIAMINE HCL 100 MG TABLET (FP) PO SCH (23:02)
[2021-11-19] MEDS: MELATONIN 5 MG TABLETS PO SCH (23:02)
[2021-11-19] MEDS: ARIPiprazole 10 MG TABLET PO SCH (23:02)
[2021-11-20] MEDS: chlordiazePOXIDE HCL 10 MG CAPSULE PO SCH ×2 (05:41→18:21)
[2021-11-20] MEDS: amLODIPine BESYLATE 10 MG TABLET (FP) PO SCH (10:25)
[2021-11-20] MEDS: PRENATAL VITAMINS W/ FOLIC ACID TABLET (FP) PO SCH (10:25)
[2021-11-20] MEDS: NICOTINE 14 MG/24 HOURS TOPICAL PATCH TD SCH (10:58)
[2021-11-20] MEDS: THIAMINE HCL 100 MG TABLET (FP) PO SCH (22:33)
[2021-11-20] MEDS: ARIPiprazole 10 MG TABLET PO SCH (22:33)
[2021-11-20] MEDS: MELATONIN 5 MG TABLETS PO SCH (22:33)
[2021-11-21] MEDS ORDERED: chlordiazePOXIDE HCL 10 MG CAPSULE PO ONE (05:00)
[2021-11-21 08:50] VITALS: BP 156/110; PULSE 87; TEMP 97.7
[2021-11-21] MEDS: NICOTINE 14 MG/24 HOURS TOPICAL PATCH TD SCH (10:37)
[2021-11-21] MEDS: amLODIPine BESYLATE 10 MG TABLET (FP) PO SCH (10:37)
[2021-11-21] MEDS: PRENATAL VITAMINS W/ FOLIC ACID TABLET (FP) PO SCH (10:37)
== END 2021-11-21 09:34 | disposition home or self-care (01) | DRG 773 ==
LOC: YASAS 10:58 → Y3N 11:36
PROVIDERS: ADMIT Allergy & Immunology; ATTEND Allergy & Immunology
PROC: HZ2ZZZZ Detoxification Services for Substance Abuse Treatment (ICD-10-PCS; principal; 2021-11-16)
DX: F10.230 Alcohol dependence with withdrawal, uncomplicated (principal); F14.20 Cocaine dependence, uncomplicated; F11.10 Opioid abuse, uncomplicated; F12.10 Cannabis abuse, uncomplicated; F17.210 Nicotine dependence, cigarettes, uncomplicated; F19.24 Other psychoactive substance dependence with psychoactive substance-induced mood disorder; I10 Essential (primary) hypertension; Z91.19 Patient's noncompliance with other medical treatment and regimen; Z91.51 Personal history of suicidal behavior; Z56.0 Unemployment, unspecified
CPT/HCPCS: 36415; 80053; 85027; 86780; 93005; 93010; C9803-CS; U0003; U0005

== ENCOUNTER 2022-01-01 14:19 | Inpatient (IN) | payer OTHER ==
[2022-01-01 14:54] VITALS: BMI 28.5
[2022-01-01] MEDS ORDERED: ACETAMINOPHEN 325 MG TABLET (FP) PO PRN ×2 (15:11)
[2022-01-01] MEDS ORDERED: IBUPROFEN 600 MG TABLET (FP) PO PRN (15:11)
[2022-01-01] MEDS ORDERED: MAG HYDROX/AL HYDROX/SIMETH 30 ML UNIT-DOSE CUP PO PRN (15:11)
[2022-01-01] MEDS ORDERED: ONDANSETRON *ODT* 4 MG TABLET SL PRN (15:11)
[2022-01-01] MEDS ORDERED: IBUPROFEN 400 MG TABLET (FP) PO PRN (15:11)
[2022-01-01] MEDS ORDERED: NICOTINE 10 MG CARTRIDGE (INHALER) IH PRN (15:11)
[2022-01-01] MEDS ORDERED: DICYCLOMINE HCL 10 MG CAPSULE PO PRN (15:11)
[2022-01-01] MEDS ORDERED: MAGNESIUM CITRATE 300 ML BOTTLE PO PRN (15:11)
[2022-01-01] MEDS ORDERED: NICOTINE POLACRILEX 2 MG GUM BUC PRN (15:11)
[2022-01-01] MEDS ORDERED: METHOCARBAMOL 500 MG TABLET PO PRN (15:11)
[2022-01-01] MEDS ORDERED: chlordiazePOXIDE HCL 25 MG CAPSULE PO PRN (15:11)
[2022-01-01] MEDS ORDERED: BISMUTH SUBSALICYLATE 262 MG/15 ML BTL PO PRN (15:11)
[2022-01-01] MEDS ORDERED: BENZOCAINE/MENTHOL (CHLORASEPTIC ) LOZENGE MM PRN (15:11)
[2022-01-01] MEDS ORDERED: MAGNESIUM HYDROX 2400MG/30ML ORAL SUSPENSION 30 ML CUP PO PRN (15:11)
[2022-01-01] MEDS ORDERED: LOPERAMIDE HCL 2 MG CAPSULE PO PRN (15:11)
[2022-01-01] MEDS: amLODIPine BESYLATE 5 MG TABLET (FP) PO SCH (18:04)
[2022-01-01] MEDS: hydrOXYzine PAMOATE 25 MG CAPSULE (FP) PO SCH ×2 (18:04→22:30)
[2022-01-01] MEDS: PRENATAL VITAMINS W/ FOLIC ACID TABLET (FP) PO SCH (18:05)
[2022-01-01] MEDS: chlordiazePOXIDE HCL 25 MG CAPSULE PO SCH ×2 (18:05→22:30)
[2022-01-01] MEDS: THIAMINE HCL 100 MG TABLET (FP) PO SCH (22:30)
[2022-01-01] MEDS: MELATONIN 5 MG TABLETS PO SCH (22:33)
[2022-01-02] MEDS: hydrOXYzine PAMOATE 25 MG CAPSULE (FP) PO SCH ×5 (06:06→22:31)
[2022-01-02] MEDS: chlordiazePOXIDE HCL 25 MG CAPSULE PO SCH ×4 (06:06→22:31)
[2022-01-02] MEDS: PRENATAL VITAMINS W/ FOLIC ACID TABLET (FP) PO SCH (10:31)
[2022-01-02] MEDS: amLODIPine BESYLATE 5 MG TABLET (FP) PO SCH (10:32)
[2022-01-02 10:55] LABS: HEMOGLOBIN 14.9 GM/dL (11.7-16.9); MCH 32.8 pg (25.7-33.7); MCHC 33.9 g/dl (32.0-35.9); MEAN CELL VOLUME 96.6 fl (80-96); MEAN PLT VOLUME 7.1 fl (7.5-11.1); PLATELET COUNT 264 10^3/uL (134-434); RBC 4.55 M/mm3 (4.00-5.60)
[2022-01-02 11:01] LABS: CALCIUM 9.1 mg/dL (8.5-10.1)
[2022-01-02 11:02] LABS: ALBUMIN 3.3 g/dl (3.4-5.0); BLOOD UREA NITROGEN 9.1 mg/dL (7-18)
[2022-01-02 11:05] LABS: CREATININE 0.9 mg/dL (0.55-1.3)
[2022-01-02 11:06] LABS: TOT PROT 6.6 g/dl (6.4-8.2)
[2022-01-02 11:07] LABS: BILIRUBIN,TOTAL 0.8 mg/dL (0.2-1)
[2022-01-02] MEDS: THIAMINE HCL 100 MG TABLET (FP) PO SCH (22:31)
[2022-01-02] MEDS: MELATONIN 5 MG TABLETS PO SCH (22:31)
[2022-01-03] MEDS ORDERED: chlordiazePOXIDE HCL 10 MG CAPSULE PO PRN
[2022-01-03] MEDS: hydrOXYzine PAMOATE 25 MG CAPSULE (FP) PO SCH ×5 (05:52→22:43)
[2022-01-03] MEDS: chlordiazePOXIDE HCL 10 MG CAPSULE PO SCH ×4 (05:52→22:47)
[2022-01-03] MEDS: PRENATAL VITAMINS W/ FOLIC ACID TABLET (FP) PO SCH (10:47)
[2022-01-03] MEDS: amLODIPine BESYLATE 5 MG TABLET (FP) PO SCH (10:47)
[2022-01-03] MEDS ORDERED: LISINOPRIL 20 MG TABLET PO ONE (14:00)
[2022-01-03] MEDS: THIAMINE HCL 100 MG TABLET (FP) PO SCH (22:42)
[2022-01-03] MEDS: MELATONIN 5 MG TABLETS PO SCH (22:42)
[2022-01-04] MEDS: hydrOXYzine PAMOATE 25 MG CAPSULE (FP) PO SCH ×5 (05:54→23:55)
[2022-01-04] MEDS: chlordiazePOXIDE HCL 10 MG CAPSULE PO SCH ×2 (05:55→17:59)
[2022-01-04] MEDS: PRENATAL VITAMINS W/ FOLIC ACID TABLET (FP) PO SCH (10:24)
[2022-01-04] MEDS: amLODIPine BESYLATE 10 MG TABLET (FP) PO SCH (10:24)
[2022-01-04] MEDS ORDERED: cloNIDine HCL 0.1 MG TABLET PO PRN (15:04)
[2022-01-04] MEDS: THIAMINE HCL 100 MG TABLET (FP) PO SCH (23:55)
[2022-01-04] MEDS: MELATONIN 5 MG TABLETS PO SCH (23:55)
[2022-01-05] MEDS ORDERED: chlordiazePOXIDE HCL 10 MG CAPSULE PO ONE (05:00)
[2022-01-05] MEDS: hydrOXYzine PAMOATE 25 MG CAPSULE (FP) PO SCH ×2 (06:01→10:13)
[2022-01-05 06:23] VITALS: BP 158/98; PULSE 61; TEMP 98
[2022-01-05] MEDS: PRENATAL VITAMINS W/ FOLIC ACID TABLET (FP) PO SCH (10:13)
[2022-01-05] MEDS: amLODIPine BESYLATE 10 MG TABLET (FP) PO SCH (10:13)
== END 2022-01-05 11:15 | disposition home or self-care (01) | DRG 774 ==
LOC: YASAS 14:19 → Y6N 16:56
PROVIDERS: ADMIT Allergy & Immunology; ATTEND Surgery
PROC: HZ2ZZZZ Detoxification Services for Substance Abuse Treatment (ICD-10-PCS; principal; 2022-01-01)
DX: F10.230 Alcohol dependence with withdrawal, uncomplicated (principal); F14.20 Cocaine dependence, uncomplicated; F17.210 Nicotine dependence, cigarettes, uncomplicated; I10 Essential (primary) hypertension; Z28.310 Unvaccinated for COVID-19; Z91.014 Allergy to mammalian meats
CPT/HCPCS: 36415; 80053; 85027; 86780; 87811; C9803-CS; J0735; U0003; U0005

== ENCOUNTER 2022-03-09 09:51 | Inpatient (IN) | payer BC, OTHER ==
[2022-03-09 10:22] VITALS: BMI 28.2
[2022-03-09] MEDS ORDERED: BENZOCAINE/MENTHOL (CHLORASEPTIC ) LOZENGE MM PRN (11:07)
[2022-03-09] MEDS ORDERED: ONDANSETRON *ODT* 4 MG TABLET SL PRN (11:07)
[2022-03-09] MEDS ORDERED: LOPERAMIDE HCL 2 MG CAPSULE PO PRN (11:07)
[2022-03-09] MEDS ORDERED: IBUPROFEN 600 MG TABLET (FP) PO PRN (11:07)
[2022-03-09] MEDS ORDERED: NICOTINE 10 MG CARTRIDGE (INHALER) IH PRN (11:07)
[2022-03-09] MEDS ORDERED: METHOCARBAMOL 500 MG TABLET PO PRN (11:07)
[2022-03-09] MEDS ORDERED: MAGNESIUM CITRATE 300 ML BOTTLE PO PRN (11:07)
[2022-03-09] MEDS ORDERED: DICYCLOMINE HCL 10 MG CAPSULE PO PRN (11:07)
[2022-03-09] MEDS ORDERED: BISMUTH SUBSALICYLATE 524 MG/30 ML PO PRN (11:07)
[2022-03-09] MEDS ORDERED: MAGNESIUM HYDROX 2400MG/30ML ORAL SUSPENSION 30 ML CUP PO PRN (11:07)
[2022-03-09] MEDS ORDERED: IBUPROFEN 400 MG TABLET (FP) PO PRN (11:07)
[2022-03-09] MEDS ORDERED: MAG HYDROX/AL HYDROX/SIMETH 30 ML UNIT-DOSE CUP PO PRN (11:07)
[2022-03-09] MEDS ORDERED: LORazepam 1 MG TABLET PO PRN (11:07)
[2022-03-09] MEDS ORDERED: ACETAMINOPHEN 325 MG TABLET (FP) PO PRN ×2 (11:07)
[2022-03-09] MEDS ORDERED: amLODIPine BESYLATE 5 MG TABLET (FP) ONE (11:30)
[2022-03-09] MEDS: amLODIPine BESYLATE 5 MG TABLET (FP) PO SCH (11:32)
[2022-03-09] MEDS: hydrOXYzine PAMOATE 25 MG CAPSULE (FP) PO SCH ×3 (15:11→22:59)
[2022-03-09] MEDS: LORazepam 2 MG TABLET PO SCH ×2 (17:41→22:59)
[2022-03-09] MEDS: MELATONIN 5 MG TABLETS PO SCH (22:59)
[2022-03-09] MEDS: THIAMINE HCL 100 MG TABLET (FP) PO SCH (23:00)
[2022-03-10] MEDS: LORazepam 2 MG TABLET PO SCH ×4 (06:14→22:53)
[2022-03-10] MEDS: hydrOXYzine PAMOATE 25 MG CAPSULE (FP) PO SCH ×5 (06:15→22:52)
[2022-03-10 10:48] LABS: HEMATOCRIT 42.8 % (35.4-49); HEMOGLOBIN 14.7 GM/dL (11.7-16.9); MCH 33.3 pg (25.7-33.7); MCHC 34.4 g/dl (32.0-35.9); MEAN CELL VOLUME 96.8 fl (80-96); MEAN PLT VOLUME 7.8 fl (7.5-11.1); PLATELET COUNT 314 10^3/uL (134-434); RBC 4.42 M/mm3 (4.00-5.60); RDW 15.5 % (11.9-15.9); WHITE BLOOD COUNT 6.8 K/mm3 (4.0-10.0)
[2022-03-10] MEDS: PRENATAL VITAMINS W/ FOLIC ACID TABLET (FP) PO SCH (10:56)
[2022-03-10] MEDS: amLODIPine BESYLATE 5 MG TABLET (FP) PO SCH (10:57)
[2022-03-10 11:04] LABS: CALCIUM 8.8 mg/dL (8.5-10.1)
[2022-03-10 11:05] LABS: ALBUMIN 3.4 g/dl (3.4-5.0); BLOOD UREA NITROGEN 7.8 mg/dL (7-18)
[2022-03-10 11:08] LABS: CREATININE 0.9 mg/dL (0.55-1.3)
[2022-03-10 11:09] LABS: BILIRUBIN,TOTAL 0.6 mg/dL (0.2-1); TOT PROT 6.4 g/dl (6.4-8.2)
[2022-03-10] MEDS: THIAMINE HCL 100 MG TABLET (FP) PO SCH (22:52)
[2022-03-10] MEDS: MELATONIN 5 MG TABLETS PO SCH (22:52)
[2022-03-11] MEDS: LORazepam 1 MG TABLET PO SCH ×4 (05:50→22:31)
[2022-03-11] MEDS: hydrOXYzine PAMOATE 25 MG CAPSULE (FP) PO SCH ×5 (05:51→22:31)
[2022-03-11] MEDS: PRENATAL VITAMINS W/ FOLIC ACID TABLET (FP) PO SCH (10:13)
[2022-03-11] MEDS: amLODIPine BESYLATE 10 MG TABLET (FP) PO SCH (10:40)
[2022-03-11] MEDS: THIAMINE HCL 100 MG TABLET (FP) PO SCH (22:31)
[2022-03-11] MEDS: MELATONIN 5 MG TABLETS PO SCH (22:31)
[2022-03-12] MEDS ORDERED: LORazepam 0.5 MG TABLET PO PRN
[2022-03-12] MEDS: LORazepam 0.5 MG TABLET PO SCH ×4 (06:03→22:34)
[2022-03-12] MEDS: hydrOXYzine PAMOATE 25 MG CAPSULE (FP) PO SCH ×5 (06:04→22:34)
[2022-03-12] MEDS: PRENATAL VITAMINS W/ FOLIC ACID TABLET (FP) PO SCH (10:21)
[2022-03-12] MEDS: amLODIPine BESYLATE 10 MG TABLET (FP) PO SCH (10:21)
[2022-03-12 22:24] VITALS: RESP 18
[2022-03-12] MEDS: MELATONIN 5 MG TABLETS PO SCH (22:34)
[2022-03-12] MEDS: THIAMINE HCL 100 MG TABLET (FP) PO SCH (22:34)
[2022-03-13] MEDS ORDERED: LORazepam 0.5 MG TABLET PO ONE (05:00)
[2022-03-13 06:22] VITALS: BP 152/89; PULSE 52; TEMP 97.5
[2022-03-13] MEDS: hydrOXYzine PAMOATE 25 MG CAPSULE (FP) PO SCH (06:36)
== END 2022-03-13 09:02 | disposition home or self-care (01) | DRG 774 ==
LOC: YASAS 09:51 → Y3N 12:02
PROVIDERS: ADMIT Allergy & Immunology; ATTEND Surgery
PROC: HZ2ZZZZ Detoxification Services for Substance Abuse Treatment (ICD-10-PCS; principal; 2022-03-09)
DX: F10.230 Alcohol dependence with withdrawal, uncomplicated (principal); F14.20 Cocaine dependence, uncomplicated; F12.20 Cannabis dependence, uncomplicated; F17.210 Nicotine dependence, cigarettes, uncomplicated; F41.9 Anxiety disorder, unspecified; F32.A Depression, unspecified; E78.5 Hyperlipidemia, unspecified; I10 Essential (primary) hypertension; Z86.59 Personal history of other mental and behavioral disorders; Z86.69 Personal history of other diseases of the nervous system and sense organs; Z28.310 Unvaccinated for COVID-19; Z28.21 Immunization not carried out because of patient refusal; Z91.14 Patient's other noncompliance with medication regimen; Z59.00 Homelessness unspecified
CPT/HCPCS: 36415; 80053; 85027; 86780; 87811; C9803-CS; Q0162; U0003; U0005

== ENCOUNTER 2023-11-12 10:17 | Inpatient (IN) | payer BC ==
[2023-11-12 11:14] VITALS: BMI 24.4
[2023-11-12] MEDS ORDERED: ACETAMINOPHEN 325 MG TABLET (FP) PO PRN (12:50)
[2023-11-12] MEDS ORDERED: LOPERAMIDE HCL 2 MG CAPSULE PO PRN (12:50)
[2023-11-12] MEDS ORDERED: BENZONATATE 200 MG CAPSULE PO PRN (12:50)
[2023-11-12] MEDS ORDERED: IBUPROFEN 400 MG TABLET (FP) PO PRN (12:50)
[2023-11-12] MEDS ORDERED: BENZOCAINE/MENTHOL (CHLORASEPTIC ) LOZENGE MM PRN (12:50)
[2023-11-12] MEDS ORDERED: POLYETHYLENE GLYCOL (HEALTHYLAX) 3350 17 GM PACKET PO PRN (12:50)
[2023-11-12] MEDS ORDERED: NICOTINE POLACRILEX 2 MG LOZENGE BC PRN (12:50)
[2023-11-12] MEDS ORDERED: MAGNESIUM HYDROX 2400MG/30ML ORAL SUSPENSION 30 ML CUP PO PRN (12:50)
[2023-11-12] MEDS ORDERED: guaiFENesin 600 MG TABLET.ER (FP) PO PRN (12:50)
[2023-11-12] MEDS ORDERED: MAG HYDROX/AL HYDROX/SIMETH 30 ML UNIT-DOSE CUP PO PRN (12:50)
[2023-11-12] MEDS ORDERED: amLODIPine BESYLATE 5 MG TABLET (FP) ONE (13:16)
[2023-11-12] MEDS: amLODIPine BESYLATE 5 MG TABLET (FP) PO SCH (13:24)
[2023-11-12 17:25] LABS: EPI CELLS >36 /uL (0-25.1); HYALINE CASTS 1 /uL (0-3.1); URINE APPEARANCE CLEAR; URINE BACTERIA 608 /uL (0-1359); URINE BILIRUBIN NEGATIVE (NEGATIVE); URINE COLOR YELLOW; URINE GLUCOSE (UA) NEGATIVE (NEGATIVE); URINE KETONE NEGATIVE (NEGATIVE); URINE LEUK ESTERASE 1+ (NEGATIVE); URINE NITRITE NEGATIVE (NEGATIVE); URINE PROTEIN 1+ (NEGATIVE); URINE RBC 7 /uL (0-23.9); URINE WBC 78 /uL (0-25.8)
[2023-11-12] MEDS: MELATONIN 5 MG TABLETS PO SCH (22:29)
[2023-11-12] MEDS: THIAMINE 100 MG TABLET PO SCH (22:29)
[2023-11-13] MEDS: PRENATAL VITAMINS W/ FOLIC ACID TABLET (FP) PO SCH (10:08)
[2023-11-13 12:14] LABS: HEMATOCRIT 38.1 % (35.4-49); HEMOGLOBIN 12.7 GM/dL (11.7-16.9); MCH 31.6 pg (25.7-33.7); MCHC 33.4 g/dl (32.0-35.9); MEAN CELL VOLUME 94.8 fl (80-96); MEAN PLT VOLUME 7.7 fl (7.5-11.1); PLATELET COUNT 319 10^3/uL (134-434); RBC 4.02 M/mm3 (4.00-5.60); RDW 15.5 % (11.9-15.9); WHITE BLOOD COUNT 8.4 K/mm3 (4.0-10.0)
[2023-11-13 12:41] LABS: CHLORIDE 106 mmol/L (98-107); POTASSIUM 4.5 mmol/L (3.5-5.1); SODIUM 140 mmol/L (136-145)
[2023-11-13 13:02] LABS: GLUCOSE,RANDOM 90 mg/dL (74-106); SGPT/ALT 22 U/L (13-61)
[2023-11-13 13:03] LABS: ALBUMIN 3.2 g/dl (3.4-5.0); ALK PHOS 90 U/L (45-117); ANION GAP 2 mmol/L (4-13); BILIRUBIN,TOTAL 0.9 mg/dL (0.2-1); BLOOD UREA NITROGEN 14.7 mg/dL (7-18); CO2 31 mmol/L (21-32); CREATININE 0.8 mg/dL (0.55-1.3)
[2023-11-13 13:04] LABS: CALCIUM 8.8 mg/dL (8.5-10.1); TOT PROT 6.2 g/dl (6.4-8.2)
[2023-11-13 13:05] LABS: SGOT/AST 21 U/L (15-37)
[2023-11-13 14:14] LABS: SYPHILIS W/ RPR CONF NON-REACTIVE (NONREACTIVE)
[2023-11-13] MEDS: IBUPROFEN 600 MG TABLET (FP) PO PRN (22:37)
[2023-11-14 13:17] VITALS: RESP 18
[2023-11-15] MEDS: hydrOXYzine PAMOATE 25 MG CAPSULE (FP) PO PRN (22:00)
[2023-11-15] MEDS: cloNIDine HCL 0.1 MG TABLET PO ONE (23:00)
[2023-11-16 06:45] VITALS: TEMP 97.6
[2023-11-16 10:16] VITALS: BP 148/91; PULSE 68
== END 2023-11-16 09:20 | disposition home or self-care (01) | DRG 772 ==
LOC: YASAS 10:17 → Y3NR 13:22 → Y5N 11-14 12:04
PROVIDERS: ADMIT Allergy & Immunology; ATTEND Psychiatry & Neurology Pain Medicine
PROC: HZ42ZZZ Group Counseling for Substance Abuse Treatment, Cognitive-Behavioral (ICD-10-PCS; principal; 2023-11-12)
DX: F14.20 Cocaine dependence, uncomplicated (principal); F10.20 Alcohol dependence, uncomplicated; F12.20 Cannabis dependence, uncomplicated; F17.210 Nicotine dependence, cigarettes, uncomplicated; E78.5 Hyperlipidemia, unspecified; I10 Essential (primary) hypertension; Z28.310 Unvaccinated for COVID-19; Z28.21 Immunization not carried out because of patient refusal
CPT/HCPCS: 36415; 80053; 80307; 81003; 85027; 86780; 86803; 87811; 93005; 93010